=== PATIENT | male | born 1945 | race African-American/Black ===

== ENCOUNTER 2016-10-18 11:45 | Inpatient (IN) | payer OTHER, MEDICARE ==
--- NOTE | ~2016-10-18 | HP ---
Unit #: [id number] #: [id number] Patient: KAUSHAL BRAND JR [id number] [address] [place], [place] [address] [id number] MR#: [id number] NAME: KAUSHAL BRAND ROOM: Age: 71 Sex: M Admission Date: 10/18/2016 : 1945 Attending Physician: Isidro Rodriguez M.D. Primary Care Physician: Fredi Nina M.D. HISTORY AND PHYSICAL CHIEF COMPLAINT Shortness of breath. HISTORY OF PRESENT ILLNESS The patient is a 71-year-old male with a past medical history of chronic obstructive pulmonary disease, congestive heart failure, chronic kidney disease, coronary artery disease, diabetes, hypertension and hyperlipidemia. The patient was brought to the emergency room with worsening shortness of breath. The patient's last dialysis was on Sunday and with (1) changes the patient missed dialysis on Sunday and was supposed to have it on Sunday and then he missed it and then he went to the [facility] this morning and got worsening shortness of breath. The patient is on BiPAP with respiratory distress and able to provide only limited history. He denies any fever, chills, nausea or vomiting. The patient had a chest x-ray that showed fluid overload/pulmonary edema and has been admitted for the above reasons. PAST MEDICAL HISTORY 1. History of congestive heart failure. 2. Chronic obstructive pulmonary disease. 3. Chronic kidney disease. 4. Coronary artery disease status post stent. 5. Diabetes. 6. Hypertension. 7. Hyperlipidemia. PAST SURGICAL HISTORY 1. Cardiac stent. 2. Left eye. 3. Left ankle surgery. 4. Groin cyst removal. SOCIAL HISTORY The patient lives with his son. He moved here from [place] within the past year. He said that he smokes a pack of cigarettes over two weeks. He denies alcohol and illicit drug abuse. He walks with a cane. His code status is a full code. FAMILY HISTORY Notable for mother having diabetes. ALLERGIES No known drug allergies. Unit #: [id number] #: [id number] Patient: KAUSHAL BRAND JR HOME MEDICATIONS 1. Aspirin. 2. Lipitor. 3. Combivent. 4. Albuterol. 5. Acetaminophen. 6. Coreg. 7. PhosLo. 8. Zestril. 9. Renvela. 10. Vitamin D3. 11. Norvasc. 12. Lasix. 13. Hydralazine. REVIEW OF SYSTEMS Fourteen point review of systems was performed and only pertinent positives are described. The remaining are negative. PHYSICAL EXAMINATION GENERAL: The patient is lying on the bed not in acute distress. VITALS: Temperature 97.9, pulse 105, respiratory rate 24, blood pressure 222/142, saturating 96%. HEENT: Head atraumatic, normocephalic. Pupils equal, round and reactive to light and accommodation. Dry mucous membranes. NECK: Supple. No jugular venous distension. LUNGS: Decreased air entry at the bases. Coarse breath sounds. Positive for rales. HEART: Regular rate and rhythm. ABDOMEN: Soft. Positive bowel sounds. EXTREMITIES: Positive for pedal edema. Chronic venous stasis changes. NEUROLOGIC: Awake and alert. On BiPAP. No gross focal motor deficits. DIAGNOSTIC STUDIES IMAGING: Chest x-ray shows fluid overload and pulmonary edema. LABORATORY: Blood gas, pH 7.27, pCO2 50, pO2 58.8, bicarb 23.3. Oxygen saturation 93.6. Glucose 229, BUN 60, creatinine 7.4, sodium 138, potassium 4.5, chloride 104, bicarb 24, calcium 7.5, total protein 7.9, alkaline phosphatase 128, CK 772. BNP 1,218. INR 1. Troponin less than 0.05. White blood cell count 10.7, hemoglobin 11.6, hematocrit 36.7, MCV 91.4, platelets 352. CARDIOVASCULAR: EKG shows sinus tachycardia with nonspecific T wave abnormalities. ASSESSMENT 1. Pulmonary edema. 2. Endstage renal disease on hemodialysis. 3. Acute respiratory failure on BiPAP. 4. Acute on chronic diastolic congestive heart failure. PLAN Admit the patient to inpatient ICU. The patient will get hemodialysis STAT today. Will continue with diuretics, Lasix 40 mg IV b.i.d. and will have renal and cardiology consult. Repeat the labs again in the morning. Further recommendations to follow. Unit #: [id number] #: [id number] Patient: KAUSHAL BRAND JR Dictated by Kayli Kelly TD: 10/18/2016 13:38 JOB #: [id number] HISTORY AND PHYSICAL X X HISTORY AND PHYSICAL
--- NOTE | ~2016-10-18 | CO ---
Unit #: [id number] #: [id number] Patient: KAUSHAL BRAND JR [id number] [address] [place], [place] [address] [id number] MR#: [id number] NAME: KAUSHAL BRAND JR ROOM: [facility] Age: 71 Sex: M Admission Date: 10/18/2016 : 1945 Attending Physician: Pratibha Abraham M.D. Primary Care Physician: Fredi Nina M.D. Consultation Date: 10/18/2016 CONSULTATION REPORT HISTORY OF PRESENT ILLNESS This is a 71-year-old male who is known to Dr. Salcedo who has a history of coronary artery disease where he underwent angioplasty and stent placement times two while he was living in [place], [place], approximately two years ago. He is known to have hypertension, hyperlipidemia, and now has end-stage renal disease where he is on hemodialysis. Patient presents to the emergency room with the complaint of shortness of breath. He states for the past two weeks, his lower extremity edema and dyspnea has worsened. He has paroxysmal nocturnal dyspnea and orthopnea where he cannot lay flat. He has been sleeping in a chair. He also states that he has substernal pressure and shortness of breath with activities. There is no radiation to his neck, arm or jaw. He denies palpitations or dizziness. He has been taking his medication as prescribed. He was changing his dialysis days from Sunday, , and Sunday to Sunday, Sunday, and Sunday. He did not go to Sunday's dialysis. His dyspnea worsening, therefore, he came to the emergency room for evaluation. In the emergency room, the patient was initially hypertensive with blood pressure 222/142 mmHg, with little improvement after IV labetalol. BNP 1218. Chest x-ray was noted for pulmonary edema. Because of his respiratory distress, the patient was placed on BiPAP. He was given IV Lasix in the emergency room. The patient was admitted to [facility] in August of this year with complaint of chest pain. He was also in acute heart failure. He was ruled out for an acute myocardial infarction. He underwent Lexiscan Cardiolite stress test where he had evidence of a prior inferior wall infarction, no mahad-infarct ischemia. His ejection fraction was 41%. PAST MEDICAL HISTORY 1. 2D echocardiogram, 09/04/2016 at [facility], showed ejection fraction equal to 42% with [id number] aortic regurgitation, [id number] tricuspid regurgitation, and moderate pulmonary hypertension. Right ventricular systolic pressure of 44 mmHg. 2. Lexiscan Cardiolite stress test, 09/04/2016 at [facility], which shows prior inferior wall infarct with no mahad-infarct ischemia. Ejection fraction of 41%. 3. Coronary artery disease, status post PCI and stent times two in [place], [place], approximately two years ago, no details available. 4. Hypertension. 5. Hyperlipidemia. 6. Insulin-dependent diabetes mellitus type 2. 7. End-stage renal disease on hemodialysis. Unit #: [id number] #: [id number] Patient: KAUSHAL BRAND JR 8. Chronic diastolic heart failure. 9. COPD. 10. Left eye blindness. 11. Active smoker. PAST SURGICAL HISTORY 1. Left arm fistula creation. 2. Left eye surgery. 3. I and D of a cyst. 4. Ankle surgery. HOME MEDICATIONS 1. Amlodipine 5 mg b.i.d. 2. Furosemide 80 mg daily. 3. Hydralazine 100 mg t.i.d. 4. Carvedilol 6.25 mg b.i.d. 5. PhosLo 1334 mg t.i.d. 6. Zestril 40 mg daily. 7. Renvela 800 mg t.i.d. 8. Vitamin D3 50,000 units weekly. 9. Aspirin 81 mg daily. 10. Lipitor 80 mg daily. 11. Combivent unit dose daily p.r.n. 12. Albuterol p.r.n. 13. Acetaminophen 650 mg q.6 h. p.r.n. ALLERGIES No known drug allergies. SOCIAL HISTORY The patient lives with his son. He has a 50-year history of smoking one-half pack of cigarettes. He quit smoking 7 months ago but restarted smoking 2-3 cigarettes per day. He has a history of substance abuse but quit more than 7 years ago. No recent IV heroin use. FAMILY HISTORY Negative for coronary artery disease. REVIEW OF SYSTEMS CONSTITUTIONAL: Negative for fever or chills. Reports weakness. Positive for weight gain. HEENT: No headache, hearing or vision changes. No difficulty with swallowing. No dizziness. CARDIOVASCULAR: Has chest pressure as described in the HPI. Negative for palpitations. Positive for paroxysmal nocturnal dyspnea and orthopnea. Denies syncope or near syncope. RESPIRATORY: Positive for dyspnea at rest, worse on exertion. Occasional nonproductive cough. No hemoptysis. GASTROINTESTINAL: No abdominal pain, nausea or vomiting. No constipation or melena. EXTREMITIES: Positive for lower extremity edema. PHYSICAL EXAMINATION VITAL SIGNS: Blood pressure 178/101, heart rate 86, temperature 97.6, BMI 39. GENERAL: This is a pleasant 71-year-old obese male who is in mild respiratory distress. NEUROLOGIC: He is awake, alert, and oriented without focal weaknesses. Unit #: [id number] #: [id number] Patient: KAUSHAL BRAND JR NECK: Trachea is midline. No thyromegaly or lymphadenopathy. Positive jugular venous distention. HEART: S1, S2. Heart sounds normal. No murmurs, rubs, or clicks. Regular rate and rhythm, just tachycardic. ABDOMEN: Firm, distended, with bowel sounds present. EXTREMITIES: With 3 to 4+ lower extremity edema. DIAGNOSTIC STUDIES LABORATORY: Glucose 229, BUN 60, creatinine 7.4, sodium 138, potassium 4.5. BNP 1218. CKMB 6.0, troponin less than 0.05. White count 10.7, hemoglobin 11.6, hematocrit 36.7, platelet count 352. IMAGING: Chest x-ray noted for pulmonary edema. There is cardiomegaly. CARDIOVASCULAR: EKG with sinus tachycardia with a rate of 101 beats per minute with nonspecific ST-wave abnormalities. IMPRESSION 1. Fluid overload secondary to missed hemodialysis. 2. Rdpch-if-befgicx diastolic heart failure. 3. Uncontrolled hypertension. 4. Chest pain, rule out myocardial infarction. 5. History of PCI and stents times 2 in 2013. 6. Hyperlipidemia. 7. Insulin-dependent diabetes mellitus type 2. 8. Preserved left ventricular systolic function, ejection fraction %. 9. Chronic obstructive pulmonary disease with continued nicotine abuse. PLAN 1. Cardiology was consulted for congestive heart failure. Congestive heart failure is most likely secondary to missed hemodialysis. Will decrease the dry weight. This has been discussed with Dr. Rosa. 2. Optimize antihypertensive medications with increase of carvedilol, hydralazine and Norvasc. 3. Monitor serial cardiac enzymes and troponin to rule out myocardial infarction. EKG shows no ischemic changes. 4. Needs better compliance with fluid restriction as well as hemodialysis. Thank you for allowing us to assist with this patient's care. Dictated by... Kade Alford A.P.R.N. for Kayli Pablo/james TD: 10/18/2016 18:34 JOB #: [id number] Unit #: [id number] #: [id number] Patient: KAUSHAL BRAND JR CONSULTATION REPORT X Kade Alford APRN X CONSULTATION REPORT
--- NOTE | ~2016-10-18 | CR72 ---
[facility] A Service of [facility] RADIOLOGY TEXT RESULTS PATIENT: KAUSHAL BRAND JR LOCATION: [facility] CICCU2-11 : [birth year] UNIT #: [id number] AGE: [address]: Lamin Marley MD SEX: M ORDER DR: [id number] [facility] [address]. [place], [place] [address] [id number] MR#: [id number] Acc #: [id number] NAME: KAUSHAL BRAND JR : 1945 SEX: M STUDY DATE/TIME: 10/18/2016 11:39 UNIT: CEDOF ROOM: [id number] STUDY DESCRIPTION: CR Chest Single View Portable Attending Physician: Dada Haji M.D. Ordering Physician: Isidro Rodriguez M.D. Primary Care Physician: Fredi Nina M.D. MEDICAL IMAGING REPORT This report is preliminary unless electronic signature is present EXAM Portable chest HISTORY Shortness of air, weakness onset today. History of diabetes and renal failure. COMPARISON 09/02/2016 FINDINGS AP portable view of the chest demonstrates extensive bilateral parenchymal opacities most likely representing a combination of interstitial and airspace disease, probably representing pulmonary edema or fluid overload. There is cardiomegaly. No dense consolidation or sizable effusions. Mediastinum is unremarkable. No invasive tubes or lines. No visible pneumothorax. Prominence of pulmonary vascularity may support underlying CHF. Dictated by... Vincent Grace M.D. THIS IS AN ELECTRONICALLY VERIFIED REPORT Vincent Grace M.D. at 10/19/2016 10:25 AM Clive TD: 10/18/2016 14:09 JOB #: [id number] MEDICAL IMAGING REPORT COPY
--- NOTE | ~2016-10-18 | DS ---
Unit #: [id number] #: [id number] Patient: KAUSHAL BRAND JR [id number] [address] [place], [place] [address] [id number] MR#: [id number] NAME: KAUSHAL BRAND ROOM: [facility] Age: 71 Sex: M Admission Date: 10/18/2016 : 1945 Discharge Date: 10/19/2016 Attending Physician: Lamin Marley M.D. Primary Care Physician: Fredi Nina M.D. DISCHARGE SUMMARY ADMITTING DIAGNOSIS Shortness of breath. FURTHER DIAGNOSES 1. End-stage renal disease on hemodialysis, missed two episodes of dialysis. 2. History of chronic obstructive pulmonary disease. 3. History of congestive heart failure. 4. Coronary artery disease. 5. Diabetes. 6. Hypertension. 7. Hyperlipidemia. HISTORY OF PRESENTING ILLNESS The patient is a 71-year-old -[place] gentleman with a past medical history of ESRD on hemodialysis, history of congestive heart failure, hypertension, noncompliance with dialysis. Unfortunately, he missed two episode of dialysis as he mentioned that there was a change in the schedule. In the emergency room, he was very short of breath. He was kept on BiPAP, admitted to the ICU. He was in hypertensive crisis. He was started on hemodialysis. He had two sessions of dialysis, one yesterday and the second one he is undergoing today. He is doing clinically better. He wants to go home. I spoke with Dr. Rosa, distribution dispatcher. He mentioned that it is okay to let him go and follow with the dialysis center tomorrow for one more session of hemodialysis which will be his regular session of dialysis tomorrow. In the hospital course, he was also seen by Dr. Tucker from Cardiology. His blood pressure medications were adjusted. His Coreg was increased from 6.25 mg twice a day to 25 mg p.o. twice a day. He is doing clinically better and he will be discharged home. On the day of the discharge, his physical examination: GENERAL APPEARANCE: The patient is alert and oriented x3, lying in the bed, in no acute distress. VITAL SIGNS: Temperature 97.7. Pulse rate 64. Respiratory rate 15. Blood pressure 111/69. HEENT: Normocephalic, atraumatic. No icterus. PERRLA. Extraocular movements intact. NECK: Supple. No JVD. HEART: S1, S2 regular. CHEST: Bilateral equal air entry. Clear to auscultation. ABDOMEN: Obese, soft, nontender. EXTREMITIES: No edema. Normal pulses. Unit #: [id number] #: [id number] Patient: KAUSHAL BRAND JR DISCHARGE MEDICATIONS 1. Albuterol inhalation daily q.4 p.r.n. for shortness of breath. 2. Tylenol p.r.n. 3. Lipitor 80 mg p.o. daily. 4. Coreg 25 mg twice a day. 5. Amlodipine 10 mg p.o. daily. 6. Lasix 80 mg p.o. daily. 7. Hydralazine 100 mg p.o. three times a day. 8. Lisinopril 40 mg p.o. daily. 9. Aspirin 81 mg daily. 10. Renagel 800 mg p.o. three times a day. 11. Calcium acetate (PhosLo) 667 mg two tabs p.o. three times a day. 12. Vitamin D3 50,000 units p.o. weekly. He is instructed to follow with his primary care and with Nephrology. He is strongly counseled to be compliant with dialysis. Total time spent in his care-28 minutes. Dictated byKayli Fletcher/fang TD: 10/20/2016 10:18 JOB #: [id number] DISCHARGE SUMMARY X X DISCHARGE SUMMARY
--- NOTE | ~2016-10-18 | EKG ---
PATIENT: KAUSHAL BRAND UNIT #: [id number] Ventricular Rate: 101 BPM Atrial Rate: 101 BPM P-R Interval: 174 ms QRS Duration: 82 ms Q-T Interval: 370 ms QTC Calculation(Bezet): 479 ms P [place]: 48 degrees Calculated R [place]: 10 degrees Calculated T [place]: 62 degrees Diagnosis Line: Sinus tachycardia Diagnosis Line: Nonspecific T wave abnormality Diagnosis Line: Abnormal ECG Diagnosis Line: When compared with ECG of 29-SEP-2015 06:47, Diagnosis Line: Nonspecific T wave abnormality no longer evident Diagnosis Line: in Anterior leads Diagnosis Line: Confirmed by SHANNAN HELLER MD ([id number]) on 10/18/2016 Diagnosis Line: 6:21:33 PM INTERPRETING MD: PINA BONDS
--- NOTE | ~2016-10-18 | EKG ---
PATIENT: AKUSHAL BRAND UNIT #: [id number] Ventricular Rate: 71 BPM Atrial Rate: 71 BPM P-R Interval: 154 ms QRS Duration: 84 ms Q-T Interval: 428 ms QTC Calculation(Bezet): 465 ms P [place]: 55 degrees Calculated R [place]: 18 degrees Calculated T [place]: 100 degrees Diagnosis Line: Normal sinus rhythm Diagnosis Line: T wave abnormality, consider lateral ischemia Diagnosis Line: Prolonged QT Diagnosis Line: Abnormal ECG Diagnosis Line: When compared with ECG of 18-OCT-2016 11:08, Diagnosis Line: T wave inversion more evident in Lateral leads Diagnosis Line: Confirmed by SAMMY MONDRAGON MD ([id number]) on Diagnosis Line: 10/19/2016 8:07:59 AM INTERPRETING BEE ALMAGUER
[2016-10-18 11:27] LABS: BASOPHIL# 0.1 X10e3 (0-0.3); BASOPHIL% 0.8 % (0-2.5); DIFF IND NO; EOSINOPHIL# 0.2 X10e3 (0-0.7); EOSINOPHIL% 1.6 % (0.0-7.0); HEMATOCRIT 36.7 % (38.0-50.0); HEMOGLOBIN 11.6 gm/dL (13.0-16.0); LYMPHOCYTE# 2.1 X10e3 (1.0-3.5); LYMPHOCYTE% 20.1 % (17.0-45.0); MEAN CELL VOLUME 91.4 FL (83-96); MEAN CORPUSCULAR HGB CONC 31.7 g/dL (30-36); MEAN PLATELET VOLUME 8.7 FL (6.5-11.5); MONOCYTE# 0.9 X10e3 (0-1.0); MONOCYTE% 8.2 % (3.0-12.0); NEUTROPHIL# 7.4 X10e3 (1.5-7.1); NEUTROPHIL% 69.3 % (40-75); PLATELET COUNT 352 X10e3 (140-420); RED BLOOD COUNT 4.01 X10e (3.90-5.60); RED CELL DISTRIBUTION WIDTH 20.2 % (11.0-15.5); WHITE BLOOD COUNT 10.7 X10e3 (4.0-10.5)
[2016-10-18 11:40] LABS: PARTIAL THROMBOPLASTIN TIME 24.9 SECONDS (23.5-31.3); PROTHROMBIN TIME (PATIENT) 10.4 SECONDS (9.6-11.5)
[~2016-10-18 11:45] MED LIST: ACETAMINOPHEN650 M1 PO; ALBUTEROL20 ml INH; AMLODIPINE BESYL5 MG PO; ASPIRIN81 MG PO; CARVEDILOL6.25 MG PO; COLACE PO; COMBIVENT U/D3 M2 INH; COZAAR25 MG PO; ERYTHROMYCIN O3.5 GM OD; FERROUS GLUCON324 MG PO; FUROSEMIDE80 MG PO; HYDRALAZINE HC100 MG PO; HYDRALAZINE HCL50 MG PO; ISORDIL PO; LASIX PO; LIPITOR80 MG PO; NICOTINE TRANSD21 MG EXT; NORMODYNE200 M1 PO; NORVASC10 MG PO; PHOSLO667 MG PO; RENVELA800 MG PO; VITAMIN D350000 UNIT PO; ZESTRIL40 MG PO
[2016-10-18 11:51] LABS: ALBUMIN SERUM 3.6 g/dL (3.5-5.0); BILIRUBIN, DIRECT 0.1 mg/dL (0.0-0.2); BILIRUBIN,INDIRECT 0.4 mg/dL (0.0-0.9); BILIRUBIN,TOTAL 0.5 mg/dL (0.2-2.0); BUN/CREATININE RATIO 8.1; CALCIUM SERUM 7.5 mg/dL (8.4-10.2); CREATININE SERUM 7.4 mg/dL (0.6-1.4); GLOM FILT RATE Estimated 9.4 mL/min (>60); POTASSIUM 4.5 mmol/L (3.5-5.1); PROTEIN TOTAL SERUM 7.9 g/dL (6.0-8.3)
[2016-10-18 12:05] LABS: ARTERIAL BLD GAS O2 SATURATION 93.6 % (90.0-100.0); ARTERIAL BLOOD GAS HCO3 23.3 mmol/L; ARTERIAL BLOOD GAS MET HB 0.6 %sat (0.0-2.0); ARTERIAL BLOOD GAS PO2 89.9 mmHg (80.0-100); ARTERIAL BLOOD GAS pH 7.272 (7.350-7.450)
[2016-10-18 12:07] LABS: ARTERIAL BLOOD GAS PCO2 50.5 mmHg (35.0-45.0); ARTERIAL DRAW? YES
[2016-10-18 12:08] LABS: ARTERIAL BLOOD GAS ALLEN TEST NORMAL; ARTERIAL BLOOD GAS ART SITE RIGHT RADIAL; ARTERIAL BLOOD GAS DELIVERY BIPAP 14/8
[2016-10-18 12:11] LABS: POC - TROPONIN <0.05 ng/mL (<=0.05)
[2016-10-18 19:30] LABS: %MB 2.9 % (0.0-4.0); MB 4.6 ng/ml
[2016-10-19 01:19] LABS: MB 3.5 ng/ml
[2016-10-19 05:31] LABS: BASOPHIL# 0.1 X10e3 (0-0.3); BASOPHIL% 0.8 % (0-2.5); EOSINOPHIL# 0.1 X10e3 (0-0.7); EOSINOPHIL% 1.5 % (0.0-7.0); HEMATOCRIT 34.2 % (38.0-50.0); HEMOGLOBIN 10.7 gm/dL (13.0-16.0); LYMPHOCYTE# 0.9 X10e3 (1.0-3.5); LYMPHOCYTE% 13.1 % (17.0-45.0); MEAN CELL VOLUME 90.7 FL (83-96); MEAN CORPUSCULAR HEMOGLOBIN 28.5 PG (28-34); MEAN CORPUSCULAR HGB CONC 31.4 g/dL (30-36); MEAN PLATELET VOLUME 8.5 FL (6.5-11.5); MONOCYTE# 0.8 X10e3 (0-1.0); MONOCYTE% 11.7 % (3.0-12.0); NEUTROPHIL# 5.2 X10e3 (1.5-7.1); NEUTROPHIL% 72.9 % (40-75); PLATELET COUNT 261 X10e3 (140-420); RED BLOOD COUNT 3.77 X10e (3.90-5.60); RED CELL DISTRIBUTION WIDTH 19.6 % (11.0-15.5); WHITE BLOOD COUNT 7.2 X10e3 (4.0-10.5)
[2016-10-19 05:45] LABS: DIFF IND NO
[2016-10-19 06:12] LABS: BUN/CREATININE RATIO 6.66; CALCIUM SERUM 8.2 mg/dL (8.4-10.2); CREATININE SERUM 5.7 mg/dL (0.6-1.4); GLOM FILT RATE Estimated 12.7 mL/min (>60); POTASSIUM 4.6 mmol/L (3.5-5.1)
[2016-10-19] MEDS ORDERED: NORVASC10 MG MT (14:00)
[2016-10-19] MEDS ORDERED: CARVEDILOL25 MG PO (14:01)
[2016-10-19] MEDS ORDERED: LIPITOR80 MG PO (15:33)
[2016-10-19] MEDS ORDERED: ZESTRIL40 MG PO (15:34)
== END 2016-10-19 21:00 | disposition home health service (06) | DRG 291 ==
LOC: CED 11:45 → CEDOF 13:20 → CICCU2 14:54
PROVIDERS: Emergency Medicine; Internal Medicine; Internal Medicine Cardiovascular Disease
PROC: 5A1D00Z (ICD-10-PCS; principal; 2016-10-19)
DX: I13.2 Hypertensive heart and chronic kidney disease with heart failure and with stage 5 chronic kidney disease, or end stage renal disease (principal); I50.33 Acute on chronic diastolic (congestive) heart failure; N18.6 End stage renal disease; E11.22 Type 2 diabetes mellitus with diabetic chronic kidney disease; Z99.2 Dependence on renal dialysis; Z91.15 Patient's noncompliance with renal dialysis; E78.5 Hyperlipidemia, unspecified; Z79.4 Long term (current) use of insulin; J44.9 Chronic obstructive pulmonary disease, unspecified; F17.210 Nicotine dependence, cigarettes, uncomplicated; R07.9 Chest pain, unspecified; I25.10 Atherosclerotic heart disease of native coronary artery without angina pectoris; Z95.5 Presence of coronary angioplasty implant and graft; Z79.82 Long term (current) use of aspirin; H54.42 Blindness, left eye, normal vision right eye
CPT/HCPCS: 36600; 71010; 80048; 80076; 82550; 82553; 82803; 82947; 83605; 83880; 84484; 85025; 85610; 85730; 93005; 94660; 94760; 94761; 96374; 96375; 99291; J0360; J1644; J1815; J1940